=== PATIENT | male | born 1940 | race Caucasian/White ===

== ENCOUNTER → 2017-10-16 | Outpatient (CLI) | payer MEDICARE ==
--- NOTE | 2017-10-16 16:02 | Diagnostic Imaging Report ---
EXAM: MRI right foot without contrast. DATE: October 16, 2017. INDICATION: 76-year-old male, soft tissue lesion in the region of the plantar aspect of the fourth metatarsal. COMPARISON: None. TECHNIQUE: Multiple noncontrast MRI sequences of the right foot were obtained. FINDINGS: There are limitations for assessment of neoplasm and for sensitivity of detection of abscess given lack of intravenous contrast. A marker was placed at the area of focal concern which is volarly located between the third and fourth metatarsal heads. There is a contour abnormality of the skin surface, which could potentially relate to the marker itself being placed. There is no convincing definite skin defect at this location to specifically suggest ulcer, although correlation with physical exam would be recommended. There is no underlying adjacent soft tissue signal abnormality or clearly identified mass. There is no focal fluid collection identified on noncontrast assessment. There is diffuse fatty atrophy of the visualized foot musculature, which is most suggestive of polyneuropathy. There is no evidence of loss of the normal T1 marrow signal or bone destruction to suggest osteomyelitis. There are at least moderate midfoot degenerative changes. There is no identified joint effusion. There is a deformity of the base of the first metatarsal, which potentially could relate to sequela of remote prior injury. Recommend correlation. There is no acute fracture. The visualized tendons are intact. The visualized portions of the plantar fascia are intact. The Lisfranc ligament proper is not particularly well seen. IMPRESSION: 1. No identified soft tissue mass or identified fluid collection on noncontrast imaging. 2. No evidence of osteomyelitis. 3. Diffuse fatty atrophy of the visualized foot musculature suggesting polyneuropathy. 4. At least moderate midfoot degenerative changes. No joint effusion. 5. Intact visualized tendons. Dictated by: Dictated on workstation # [id number]
== END ==
LOC: RAD 14:22
PROVIDERS: ATTEND Podiatrist Foot & Ankle Surgery
DX: M79.89 Other specified soft tissue disorders (principal); M62.571 Muscle wasting and atrophy, not elsewhere classified, right ankle and foot; M19.071 Primary osteoarthritis, right ankle and foot